=== PATIENT | female | born 1945 | race Caucasian/White ===

== ENCOUNTER → 2017-05-02 | Outpatient (CLI) | payer MEDICARE ==
--- NOTE | 2017-05-02 11:01 | BD ---
EXAMINATION TYPE: MG DEXA axial skeleton. DATE OF EXAM: 05/02/2017 COMPARISON: Previous study dated 09/03/2012 CLINICAL HISTORY: Postmenopausal female. . Height: 5 ft 5 1/4 in Weight: 184 FRAX RISK QUESTIONS: Alcohol (3 or more units per day): NO Family History (Parent hip fracture): NO Glucocorticoids (More than 3mos): NO (Ex: prednisone, prednisolone, methylprednisolone, dexamethasone, and hydrocortisone). History of Fracture in Adulthood: NO Secondary Osteoporosis: 1. Type 1 Diabetes: NO 2. Hyperthyroidism: NO 3. Menopause before 45: NO 4. Malnutrition: NO 5. Chronic liver disease: NO Rheumatoid Arthritis: NO Current Tobacco Use: NO RISK FACTORS HISTORY OF: Drink Alcohol: ONCE A WEEK Active: YES Postmenopausal woman: TOTAL HYST AGE 51 Take estrogen and/or progesterone medications: TOOK FROM AGE 51 -56 MEDICATIONS: Thyroid Medications: LEVOTHYROXINE How Long: OVER 20 YRS Osteoporosis Medications: Which medication: How Long: Additional Medications: LEVOTHYROXINE, HYDROCHLOROTHIAZIDE, ATTENOLOL EXAM MEASUREMENTS: Bone mineral densitometry was performed using the [employer]. Bone mineral density as measured about the Lumbar spine is: ----- L1-L4(G/cm2): 1.173 T Score Values are as follows: ----- L2: -1.5 ----- L3: 0.3 ----- L4: 0.8 ----- L1-L4: -0.1 Bone mineral density has: Increased 1.4% since study of: 2011 Bone mineral density about the R hip (g/cm2): 1.028 Bone mineral density about the L hip (g/cm2): 1.027 T Score values are as follows: -----R Neck: -0.1 -----L Neck: -0.1 -----R Total: 0.6 -----L Total: 0.4 Bone mineral density has: Decreased -5.0% since study of: 2011 IMPRESSION: Osteopenia (T Score between -2.5 and -1 as noted by T score values There is slightly increased risk of fracture and the patient may be considered for treatment. Re-Screen 1-3 years. This patient has lost an inch in height 2011. This increases her risk for osteoporotic fracture. NOTE: T-SCORE=SD OF THE YOUNG ADULT MEAN.
--- NOTE | 2017-05-05 08:53 | MM ---
Reason for exam: screening (asymptomatic). Last mammogram was performed 1 year and 8 months ago. History: Patient is postmenopausal and has history of other cancer at age 70. Took hormonal contraceptives for 7 years beginning at age 25. Took estrogen for 5 years beginning at age 51. Physical Findings: A clinical breast exam by your physician is recommended on an annual basis and results should be correlated with mammographic findings. MG 3D Screening Mammo W/Cad Bilateral CC and MLO view(s) were taken. Prior study comparison: September 13, 2015, bilateral MG screening mammo w CAD. September 12, 2014, bilateral MG screening mammo w CAD. There is chronic nodularity in the right breast. No significant changes when compared with prior studies. ASSESSMENT: Benign, BI-RAD 2 RECOMMENDATION: Routine screening mammogram of both breasts in 1 year.
== END | disposition home or self-care (01) ==
LOC: RADMAMWWP 09:38
PROVIDERS: ATTEND Family Medicine
DX: Z12.31 Encounter for screening mammogram for malignant neoplasm of breast (principal); M85.80 Other specified disorders of bone density and structure, unspecified site
CPT/HCPCS: 77080; 77063; G0202

== ENCOUNTER → 2018-05-26 | Outpatient (CLI) | payer MEDICARE ==
--- NOTE | 2018-05-28 10:40 | MM ---
Reason for exam: screening (asymptomatic). Last mammogram was performed 1 year and 1 month ago. History: Patient is postmenopausal and has history of other cancer at age 70. Took hormonal contraceptives for 7 years beginning at age 25. Took estrogen for 5 years beginning at age 51. Physical Findings: A clinical breast exam by your physician is recommended on an annual basis and results should be correlated with mammographic findings. MG 3D Screening Mammo W/Cad Bilateral CC and MLO view(s) were taken. Prior study comparison: May 02, 2017, bilateral MG 3d screening mammo w/cad. September 13, 2015, bilateral MG screening mammo w CAD. There are scattered fibroglandular densities. No suspicious abnormality. No significant changes when compared with prior studies. ASSESSMENT: Negative, BI-RAD 1 RECOMMENDATION: Routine screening mammogram of both breasts in 1 year.
== END | disposition home or self-care (01) ==
LOC: RADMAMWWP 09:01
PROVIDERS: ATTEND Family Medicine
DX: Z12.31 Encounter for screening mammogram for malignant neoplasm of breast (principal)
CPT/HCPCS: 77063; 77067

== ENCOUNTER 2018-09-03 08:00 | Day surgery (SDC) | payer MEDICARE ==
[2018-08-31 12:50] VITALS: BMI 29.4
[~2018-09-03 08:00] MED LIST: LACTATED RINGERS 1,000 ML IV SCH
[2018-09-03] MEDS ORDERED: LIDOCAINE 1% 20 ML VIAL (10MG/ML) FOR IV START INTRADERMA ONE (08:54)
[2018-09-03 09:05] VITALS: RESP 16; TEMP 97.8
[2018-09-03] MEDS ORDERED: PROPOFOL 10 MG/ML 20 ML VIAL IV ONE (09:22)
[2018-09-03] MEDS ORDERED: LIDOCAINE 1% INJ 10MG/ML (20 ML MDV) ONE (09:22)
[2018-09-03] MEDS ORDERED: MIDAZOLAM 2 MG/2 ML VIAL ONE (09:22)
--- NOTE | 2018-09-03 09:59 | P.PCN ---
Date of Procedure: 09/03/18 Procedure(s) Performed: Brief history: Patient is a pleasant 73-year-old white female, scheduled for an elective upper endoscopy as well as colonoscopy as a part of evaluation of GERD and prior history of colon polyps. Procedure performed: Esophagogastroduodenoscopy with biopsy Colonoscopy Preoperative diagnosis: Long-standing history of GERD History of colon polyps Anesthesia: MAC Procedure: After informed consent was obtained from the patient was brought into the endoscopy unit and IV sedation was administered by anesthesia under continuous monitoring. Initially upper endoscopy was done. The Olympus GF 160 video endoscope was inserted inserted into the mouth and esophagus intubated without any difficulty and was gradually advanced into the stomach and duodenum and carefully examined. The bulb and second part of the duodenum appeared normal. The scope was then withdrawn into the stomach adequately insufflated with air and upon careful examination the antrum and body, cardia and fundus appeared normal. The scope was then withdrawn into the esophagus. The GE junction was located at 40 cm to the incisors. It appeared regular with no erythema erosions or ulcerations. Rest of the esophagus appeared normal. Patient tolerated the procedure well. At this time the patient continued to remain sedation. Initial digital rectal examination was normal. Olympus CF 160 video colonoscope was then inserted into the rectum and gradually advanced to the cecum without any difficulty. Careful examination was performed as the scope was gradually being withdrawn. The prep was excellent. The cecum, ascending colon, transverse colon, descending colon, sigmoid colon and rectum appeared normal. Diffuse scattered diverticulosis seen. Retroflexion was performed in the rectum and no lesions were noted. Patient tolerated the procedure well. Impression: 1. Upper endoscopy revealed mild antral gastritis, LA grade B reflux esophagitis and small hiatal hernia 2. Colonoscopy revealed diffuse scattered diverticulosis but no evidence of colorectal neoplasia Recommendations: Findings of this examination were discussed with the patient as well as his family. She was advised to follow with biopsy results. She was advised to stop Zantac and instead advised to start on Prilosec 20 mg daily and follow antireflux measures. She can have a repeat surveillance colonoscopy in 5 years from now because of prior history of colon polyps
[2018-09-03 10:05] VITALS: BP 145/88
[2018-09-03 10:16] VITALS: PULSE 64
== END 2018-09-03 10:40 | disposition home or self-care (01) ==
LOC: ORWHC2ENDO 08:00
PROVIDERS: ATTEND Internal Medicine Gastroenterology
DX: K29.50 Unspecified chronic gastritis without bleeding (principal); K21.0 Gastro-esophageal reflux disease with esophagitis; K44.9 Diaphragmatic hernia without obstruction or gangrene; K57.30 Diverticulosis of large intestine without perforation or abscess without bleeding; Z86.010 Personal history of colon polyps; E07.9 Disorder of thyroid, unspecified; I10 Essential (primary) hypertension; Z79.899 Other long term (current) drug therapy
CPT/HCPCS: 88305; 45378; 43239; J2250; J2001; J2704

== ENCOUNTER → 2019-05-21 | Outpatient (CLI) | payer MEDICARE ==
[2019-05-21 13:48] LABS: African American GFR (CKD) >90 (>60 ml/min/1.73 sqM); Blood Urea Nitrogen 15 mg/dL (7-17)
--- NOTE | 2019-05-21 15:43 | CT ---
EXAMINATION TYPE: CT abdomen pelvis w con DATE OF EXAM: 05/21/2019 COMPARISON: None HISTORY: Epigastric pain. CT DLP: 942.8 mGycm CONTRAST: CT scan of the abdomen and pelvis is performed with Oral Contrast and with IV Contrast, patient injec fannie with 100ml mL of Isovue 300. FINDINGS: LUNG BASES-: No visible nodule. No infiltrate. Fixed hiatal hernia noted. LIVER/GB: No calcified gallstones. There is hepatic steatosis with hepatomegaly. No space occupying hepatic lesion. Biliary tree is of normal caliber. PANCREAS: No inflammation. No distinct mass. SPLEEN: No splenic enlargement. No lesion seen. ADRENALS: No nodule. No thickening. KIDNEYS/BLADDER: No hydronephrosis. No nephrolithiasis. No distinct solid renal mass. Simple cyst lower pole right kidney measuring 8.3 cm. Urinary bladder grossly unremarkable. BOWEL: Normal appendix. Normal bowel caliber. No inflammation. GENITAL ORGANS: No gross abnormality. LYMPH NODES: No greater than 1cm abdominal or pelvic lymph nodes are appreciated. AORTA: No significant abnormality. OSSEOUS STRUCTURES: No significant abnormality is seen. OTHER: No significant additional abnormality is seen. IMPRESSION: 1. Hepatic steatosis with hepatomegaly. 2. Fixed hiatal hernia. 3. Large simple cyst lower pole right kidney.
== END | disposition home or self-care (01) ==
LOC: RADCTMAIN 13:04
PROVIDERS: ATTEND Internal Medicine Gastroenterology
DX: K44.9 Diaphragmatic hernia without obstruction or gangrene (principal); K76.0 Fatty (change of) liver, not elsewhere classified; N28.1 Cyst of kidney, acquired; Z01.89 Encounter for other specified special examinations
CPT/HCPCS: 82565; 84520; 74177; 36415; Q9967

== ENCOUNTER → 2019-07-13 | Outpatient (CLI) | payer MEDICARE ==
--- NOTE | 2019-07-14 10:06 | MM ---
Reason for exam: screening (asymptomatic). Last mammogram was performed 1 year and 2 months ago. History: Patient is postmenopausal and has history of other cancer at age 70. Took hormonal contraceptives for 7 years beginning at age 25. Took estrogen for 5 years beginning at age 51. Physical Findings: A clinical breast exam by your physician is recommended on an annual basis and results should be correlated with mammographic findings. MG 3D Screening Mammo W/Cad Bilateral CC and MLO view(s) were taken. Prior study comparison: May 26, 2018, bilateral MG 3d screening mammo w/cad. May 02, 2017, bilateral MG 3d screening mammo w/cad. There are scattered fibroglandular densities. There is no discrete abnormality. No significant changes when compared with prior studies. ASSESSMENT: Negative, BI-RAD 1 RECOMMENDATION: Routine screening mammogram of both breasts in 1 year.
== END | disposition home or self-care (01) ==
LOC: RADMAMWWP 10:18
PROVIDERS: ATTEND Family Medicine
DX: Z12.31 Encounter for screening mammogram for malignant neoplasm of breast (principal)
CPT/HCPCS: 77063; 77067

== ENCOUNTER 2020-07-08 15:01 | Emergency (ER) | payer MEDICARE ==
[2020-07-08 15:06] VITALS: BP 188/94; PULSE 85; RESP 18; TEMP 98.1
[2020-07-08 16:06] LABS: Basophils # (A) 0.1 k/uL (0-0.2); Basophils % (A) 1 %; Eosinophils # (A) 0.1 k/uL (0-0.7); Eosinophils % (A) 2 %; HCT 47.1 % (34.0-46.0); HGB 15.5 gm/dL (11.4-16.0); Lymphocytes % (A) 15 %; MCH 31.9 pg (25.0-35.0); MCHC 32.9 g/dL (31.0-37.0); Mean Platelet Volume 7.4; Monocytes # (A) 0.4 k/uL (0-1.0); Monocytes % (A) 6 %; Neutrophils # (A) 4.8 k/uL (1.3-7.7); Neutrophils % (A) 75 %; Platelet Count 246 k/uL (150-450); RBC 4.86 m/uL (3.80-5.40); RDW 12.6 % (11.5-15.5); WBC 6.4 k/uL (3.8-10.6)
[2020-07-08 16:15] LABS: ALT 31 U/L (4-34); AST 32 U/L (14-36); African American GFR (CKD) >90 (>60 ml/min/1.73 sqM); Albumin 4.8 g/dL (3.5-5.0); Alkaline Phosphatase 81 U/L (38-126); Anion Gap 9 mmol/L; Blood Urea Nitrogen 13 mg/dL (7-17); Calcium 11.3 mg/dL (8.4-10.2); Carbon Dioxide 26 mmol/L (22-30); Chloride 103 mmol/L (98-107); Glucose 120 mg/dL (74-99); INR 0.9 (<1.2); Non-African American GFR(CKD) 89 (>60 ml/min/1.73 sqM); Partial Thromboplastin Time 22.3 sec (22.0-30.0); Potassium 3.9 mmol/L (3.5-5.1); Prothrombin Time 9.8 sec (9.0-12.0); Sodium 138 mmol/L (137-145); Total Bilirubin 0.5 mg/dL (0.2-1.3); Total Protein 7.6 g/dL (6.3-8.2)
--- NOTE | 2020-07-08 16:36 | ED ---
General Adult HPI - General Chief complaint: Neuro Symptoms/Deficit Stated complaint: Neuro Symptoms Time Seen by Provider: 07/08/20 15:05 Source: patient Mode of arrival: wheelchair Limitations: no limitations - History of Present Illness Initial comments: Patient is 75-year-old female with past medical history of hypertension and thyroid disorder who presents to the emergency department with reported right- sided facial droop. Noted that on her right eye became very watery with blurred vision. She noted that she couldn't close it. Yesterday she noted that she had tingling to her nose and drooping to her right mouth. She's been trying to use eyedrops in the right eye. Denies any speech difficulties. No headaches or visual changes. Denies any neck stiffness. No recent head trauma. Denies history of CVA or TIA. No weakness in her upper or lower extremities. denies any confusion. She called her primary care physician who was concerned for Riggs's palsy but told her to go into the emergency room and 4 evaluation of possible stroke. Patient denies any ear pain or hearing changes. No fevers or chills. Denies chest pain or shortness of breath. No abdominal pain. No other alleviating, precipitating or modifying factors - Related Data Home Medications Medication Instructions Recorded Confirmed Cholecalciferol (Vitamin D3) 2,000 unit PO MOTUWETHFR 08/31/18 09/03/18 [Vitamin D3] Levothyroxine Sodium [Synthroid] 150 mcg PO DAILY 08/31/18 09/03/18 Ranitidine HCl [Zantac] 150 mg PO DAILY 08/31/18 09/03/18 atenoloL [Atenolol] 25 mg PO DAILY 08/31/18 09/03/18 hydroCHLOROthiazide 25 mg PO DAILY 08/31/18 09/03/18 Previous Rx's Medication Instructions Recorded Artificial Tears Ointment 1 gm OPHTHALMIC HS #1 tube 07/08/20 [Lubrifresh Pm Ointment] Carboxymethylcellulose Sodium 2 drop RIGHT EYE QID #1 bottle 07/08/20 [Refresh Tears] predniSONE [Deltasone] 60 mg PO DAILY #7 tab 07/08/20 valACYclovir HCL [Valtrex] 1,000 mg PO Q8HR #21 tab 07/08/20 Allergies Allergy/AdvReac Type Severity Reaction Status Date / Time No Known Allergies Allergy Verified 07/08/20 15:06 Review of Systems ROS Statement: Those systems with pertinent positive or pertinent negative responses have been documented in the HPI. ROS Other: All systems not noted in ROS Statement are negative. 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 History of Any Multi-Drug Resistant Organisms: None Reported Past Surgical History: Appendectomy, Hysterectomy Additional Past Surgical History / Comment(s): Colonoscopy, Carpal Tunnel, Cataracts Past Anesthesia/Blood Transfusion Reactions: Previous Problems w/ Anesthesia Additional Past Anesthesia/Blood Transfusion Reaction / Comment(s): last colonoscopy, O2 sats dropped and pt needed to be intubated Past Psychological History: No Psychological Hx Reported Smoking Status: Never smoker Past Alcohol Use History: Rare Past Drug Use History: None Reported - Past Family History Mother Family Medical History: No Reported History General Exam Limitations: no limitations Course Vital Signs 07/08/20 15:03 Temperature 98.1 F Pulse Rate 85 Respiratory 18 Rate Blood Pressure 188/94 O2 Sat by Pulse 98 Oximetry Medical Decision Making - Medical Decision Making Upon arrival the patient is placed into room 1. A thorough history and physical exam is performed. Onset of symptoms has been since and has been worsening in nature. No sudden onset of symptoms. Patient is unable to wrinkle her forehead. Patient cannot close her eye. There is injection to the right eye. I am concerned for Riggs's palsy however I do believe the patient should still have evaluation for possible CVA. Patient agreed to this. Laboratory states her conducted. Calcium is 11.3. Patient went over for a CT of her brain as well as CT angiography and a chest x-ray. Imaging demonstrates no acute findings. The results are discussed the patient. I did discuss diagnosis, differential and treatment options. At this time I do believe the patient's symptoms are most consistent with Riggs's palsy. At this time she will be given 60 mg of prednisone and 1 g of valacyclovir. She will be placed on these medications for the next 7 days. She is instructed to keep the eye covered with eyepatch for which she is provided with 1. During the day she is to use lubricating eyedrops 4 times a day to the right eye. At nighttime I would like the patient to use lubricating ointment and tape her eye closed. The patient is given medical tape. Prescriptions were sent to the pharmacy. She is instruct ed to start taking the prednisone and valacyclovir tomorrow she did receive her dose already for today. She needs to follow up with her primary care physician early next week. I also given follow-up information for the captain waiter/waitress on- call. The patient has any new or worsening symptoms she should return to the emergency room. Patient was in agreement with the treatment plan and she was discharged home in stable condition - Lab Data Result diagrams: 07/08/20 15:54 07/08/20 15:54 Lab Results 07/08/20 07/08/20 07/08/20 Range/Units 15:54 15:54 15:54 WBC 6.4 (3.8-10.6) k/uL RBC 4.86 (3.80-5.40) m/uL Hgb 15.5 (11.4-16.0) gm/dL Hct 47.1 H (34.0-46.0) % MCV 97.0 (80.0-100.0) fL MCH 31.9 (25.0-35.0) pg MCHC 32.9 (31.0-37.0) g/dL RDW 12.6 (11.5-15.5) % Plt Count 246 (150-450) k/uL Neutrophils % 75 % Lymphocytes % 15 % Monocytes % 6 % Eosinophils % 2 % Basophils % 1 % Neutrophils # 4.8 (1.3-7.7) k/uL Lymphocytes # 1.0 (1.0-4.8) k/uL Monocytes # 0.4 (0-1.0) k/uL Eosinophils # 0.1 (0-0.7) k/uL Basophils # 0.1 (0-0.2) k/uL PT 9.8 (9.0-12.0) sec INR 0.9 (<1.2) APTT 22.3 (22.0-30.0) sec Sodium 138 (137-145) mmol/L Potassium 3.9 (3.5-5.1) mmol/L Chloride 103 (98-107) mmol/L Carbon Dioxide 26 (22-30) mmol/L Anion Gap 9 mmol/L BUN 13 (7-17) mg/dL Creatinine 0.63 (0.52-1.04) mg/dL Est GFR (CKD-EPI)AfAm >90 (>60 ml/min/1.73 sqM) Est GFR (CKD-EPI)NonAf 89 (>60 ml/min/1.73 sqM) Glucose 120 H (74-99) mg/dL Calcium 11.3 H (8.4-10.2) mg/dL Total Bilirubin 0.5 (0.2-1.3) mg/dL AST 32 (14-36) U/L ALT 31 (4-34) U/L Alkaline Phosphatase 81 (38-126) U/L Troponin I (0.000-0.034) ng/mL Total Protein 7.6 (6.3-8.2) g/dL Albumin 4.8 (3.5-5.0) g/dL 07/08/20 Range/Units 15:54 WBC (3.8-10.6) k/uL RBC (3.80-5.40) m/uL Hgb (11.4-16.0) gm/dL Hct (34.0-46.0) % MCV (80.0-100.0) fL MCH (25.0-35.0) pg MCHC (31.0-37.0) g/dL RDW (11.5-15.5) % Plt Count (150-450) k/uL Neutrophils % % Lymphocytes % % Monocytes % % Eosinophils % % Basophils % % Neutrophils # (1.3-7.7) k/uL Lymphocytes # (1.0-4.8) k/uL Monocytes # (0-1.0) k/uL Eosinophils # (0-0.7) k/uL Basophils # (0-0.2) k/uL PT (9.0-12.0) sec INR (<1.2) APTT (22.0-30.0) sec Sodium (137-145) mmol/L Potassium (3.5-5.1) mmol/L Chloride (98-107) mmol/L Carbon Dioxide (22-30) mmol/L Anion Gap mmol/L BUN (7-17) mg/dL Creatinine (0.52-1.04) mg/dL Est GFR (CKD-EPI)AfAm (>60 ml/min/1.73 sqM) Est GFR (CKD-EPI)NonAf (>60 ml/min/1.73 sqM) Glucose (74-99) mg/dL Calcium (8.4-10.2) mg/dL Total Bilirubin (0.2-1.3) mg/dL AST (14-36) U/L ALT (4-34) U/L Alkaline Phosphatase (38-126) U/L Troponin I <0.012 (0.000-0.034) ng/mL Total Protein (6.3-8.2) g/dL Albumin (3.5-5.0) g/dL Disposition Clinical Impression: Riggs's palsy Disposition: HOME SELF-CARE Condition: Stable Additional Instructions: Please follow-up with the primary care doctor in 2-4 days. Use the eye ointment and tape your eye closed at night. During the day use the eyedrops and keep the eye covered. Follow-up with the eye doctor next week. Return to the emergency department for any new or worsening symptoms Prescriptions: predniSONE [Deltasone] 60 mg PO DAILY #7 tab Artificial Tears Ointment [Lubrifresh Pm Ointment] 1 gm OPHTHALMIC HS #1 tube Carboxymethylcellulose Sodium [Refresh Tears] 2 drop RIGHT EYE QID #1 bottle valACYclovir HCL [Valtrex] 1,000 mg PO Q8HR #21 tab Is patient prescribed a controlled substance at d/c from ED?: No Referrals: Virgen Salazar MD [Primary Care Provider] - 1-2 days Marquez Vogt MD [STAFF PHYSICIAN] - 1-2 days Time of Disposition: 17:52
--- NOTE | 2020-07-08 16:39 | CT ---
EXAMINATION TYPE: CT brain wo con DATE OF EXAM: 07/08/2020 COMPARISON: None HISTORY: Right side weakness CT DLP: 1102.8 mGycm Automated exposure control for dose reduction was used. There is mild cerebral atrophy appropriate for age. There is no mass effect nor midline shift. There is no sign of intracranial hemorrhage. The calvarium is intact. Skull base is intact. There is normal aeration of the mastoid sinuses. IMPRESSION: Negative CT scan of the brain.
--- NOTE | 2020-07-08 17:00 | CT ---
EXAMINATION TYPE: CT angio head neck DATE OF EXAM: 07/08/2020 COMPARISON: None HISTORY: Right side weakness CT DLP: 436.2 mGycm Automated exposure control for dose reduction was used. CONTRAST: Performed with IV Contrast, patient injected with 65 mL of Isovue 370. Images were obtained from the aortic arch to the vertex of the brain with IV contrast. There are 3-D post processed images. There is normal branching pattern of the great vessels on the aortic arch. There is bilateral arteria l flow in the subclavian arteries. There is arterial flow in the common internal and external carotid arteries bilaterally. There is wide patency of the carotid artery bifurcations. There is arterial fl ow in both vertebral arteries which are symmetric. There is no evidence of carotid or vertebral arter y aneurysm or dissection. There is arterial flow in the anterior middle and posterior cerebral arteries. There is arterial flow in the vertebrobasilar artery system. There is no mass effect. There is no evidence of intracranial aneurysm or neovascularity. I see no evidence of arterial stenosis in the brain. There is normal cont rast opacification of the venous sinuses. IMPRESSION: Normal CT angiogram of the neck. Normal CT angiogram of the brain.
--- NOTE | 2020-07-08 17:16 | XR ---
EXAMINATION TYPE: XR chest 2V DATE OF EXAM: 07/08/2020 COMPARISON: NONE HISTORY: Altered mental status. TECHNIQUE: FINDINGS: Heart and mediastinum are normal. Lungs are clear. Diaphragm is normal. Bony thorax appears normal. There are no hilar masses. IMPRESSION: Normal chest.
[2020-07-08] MEDS ORDERED: valACYclovir 500 MG TAB PO STA (17:36)
[2020-07-08] MEDS ORDERED: predniSONE 20 MG TAB PO STA (17:36)
== END 2020-07-08 18:30 | disposition home or self-care (01) ==
LOC: EC 15:01
DX: G51.0 Bell's palsy (principal); I10 Essential (primary) hypertension; E07.9 Disorder of thyroid, unspecified; Z79.890 Hormone replacement therapy; Z79.899 Other long term (current) drug therapy; Z85.828 Personal history of other malignant neoplasm of skin
CPT/HCPCS: 36415; 80053; 84484; 85025; 85610; 85730; 71046; 70496; 70450; 70498; 99284; J7512; Q9967

== ENCOUNTER → 2020-07-17 | Outpatient (CLI) | payer MEDICARE ==
--- NOTE | 2020-07-18 11:28 | MM ---
Reason for exam: screening (asymptomatic). Last mammogram was performed 1 year ago. History: Patient is postmenopausal and has history of other cancer at age 70. Took hormonal contraceptives for 7 years beginning at age 25. Took estrogen for 5 years beginning at age 51. Physical Findings: A clinical breast exam by your physician is recommended on an annual basis and results should be correlated with mammographic findings. MG 3D Screening Mammo W/Cad Bilateral CC and MLO view(s) were taken. Prior study comparison: July 13, 2019, bilateral MG 3d screening mammo w/cad. May 26, 2018, bilateral MG 3d screening mammo w/cad. There are scattered fibroglandular densities. There are benign appearing round calcifications in the left breast posterior middle position. Asymmetric breast tissue right anterior, stable. There is no discrete abnormality. ASSESSMENT: Benign, BI-RAD 2 RECOMMENDATION: Routine screening mammogram of both breasts in 1 year.
== END | disposition home or self-care (01) ==
LOC: RADMAMWWP 16:14
PROVIDERS: ATTEND Family Medicine
DX: Z12.31 Encounter for screening mammogram for malignant neoplasm of breast (principal)
CPT/HCPCS: 77063; 77067

== ENCOUNTER → 2020-08-14 | Outpatient (CLI) | payer MEDICARE ==
--- NOTE | 2020-08-14 18:15 | BD ---
EXAMINATION TYPE: Axial Bone Density DATE OF EXAM: 08/14/2020 COMPARISON: NONE CLINICAL HISTORY: Postmenopausal screening Height: 66 Weight: 183.2 FRAX RISK QUESTIONS: Alcohol (3 or more units per day): no Family History (Parent hip fracture): no Glucocorticoids (More than 3mos): no (Ex: prednisone, prednisolone, methylprednisolone, dexamethasone, and hydrocortisone). History of Fracture in Adulthood: no Secondary Osteoporosis: 1. Type 1 Diabetes: no 2. Hyperthyroidism: no 3. Menopause before 45: no 4. Malnutrition: no 5. Chronic liver disease: no Rheumatoid Arthritis: no Current Tobacco Use: no RISK FACTORS HISTORY OF: Family History of Osteoporosis: no Active: yes Diet low in dairy products/other sources of calcium: no Postmenopausal woman: age 51 Lost more than 2 inches in height since high school: no MEDICATIONS: blood pressure meds, Prilosec, vitamins Thyroid Medications: thyroid How Lon years Additional History: EXAM MEASUREMENTS: Bone mineral densitometry was performed using the [employer] System. Bone mineral density as measured about the Lumbar spine is: ----- L1-L4(G/cm2): 1.159 T Score Values are as follows: ----- L2: -1.8 ----- L3: 0.3 ----- L4: 0.7 ----- L1-L4: -0.2 Bone mineral density has: decreased -1.0 % since study of: 05.12.2017 Bone mineral density about the R hip (g/cm2): 1.000 Bone mineral density about the L hip (g/cm2): 0.951 T Score values are as follows: -----R Neck: -0.3 -----L Neck: -0.6 -----R Total: 0.4 -----L Total: 0.0 Bone mineral density has: decreased -3.6 % since study of: 05.12.2017 IMPRESSION: Normal (Values between +1 and -1 indicate normal bone mass). Consider repeating this study in 5 year s or sooner if there is some new clinical indication. NOTE: T-SCORE=SD OF THE YOUNG ADULT MEAN. .
== END | disposition home or self-care (01) ==
LOC: RADBDWWP 07:21
PROVIDERS: ATTEND Family Medicine
DX: Z78.0 Asymptomatic menopausal state (principal)
CPT/HCPCS: 77080

== ENCOUNTER → 2021-08-08 | Outpatient (CLI) | payer MEDICARE ==
--- NOTE | 2021-08-08 14:19 | MM ---
Reason for exam: screening (asymptomatic). Last mammogram was performed 1 year and 1 month ago. History: Patient is postmenopausal and has history of other cancer at age 70. Took hormonal contraceptives for 7 years beginning at age 25. Took estrogen for 5 years beginning at age 51. Physical Findings: A clinical breast exam by your physician is recommended on an annual basis and results should be correlated with mammographic findings. MG 3D Screening Mammo W/Cad Bilateral CC and MLO view(s) were taken. Prior study comparison: July 17, 2020, bilateral MG 3d screening mammo w/cad. July 13, 2019, bilateral MG 3d screening mammo w/cad. May 26, 2018, bilateral MG 3d screening mammo w/cad. There are scattered fibroglandular densities. There are benign appearing round calcifications in the left breast. There is chronic nodularity in the right breast, stable. There is no discrete abnormality. ASSESSMENT: Benign, BI-RAD 2 RECOMMENDATION: Routine screening mammogram of both breasts in 1 year.
== END | disposition home or self-care (01) ==
LOC: RADMAMWWP 09:03
PROVIDERS: ATTEND Family Medicine
DX: Z12.31 Encounter for screening mammogram for malignant neoplasm of breast (principal)
CPT/HCPCS: 77063; 77067

== ENCOUNTER 2021-09-14 10:35 | Day surgery (SDC) | payer MEDICARE ==
[2021-09-12 11:25] VITALS: BMI 28.3
[2021-09-14 11:04] VITALS: TEMP 97.3
[2021-09-14] MEDS ORDERED: PROPOFOL 10 MG/ML 20 ML VIAL IV ONE (12:28)
--- NOTE | 2021-09-14 12:53 | P.PCN ---
Date of Procedure: 09/14/21 Procedure(s) Performed: BRIEF HISTORY: Patient is a 76-year-old pleasant white female scheduled for an elective colonoscopy as a part of evaluation of intermittent rectal bleeding. PROCEDURE PERFORMED: Colonoscopy with biopsy. PREOPERATIVE DIAGNOSIS: Intermittent rectal bleeding. IV sedation per Anesthesia. PROCEDURE: After informed consent was obtained, the patient, was brought into the endoscopy unit. IV sedation was administered by Anesthesia under continuous monitoring. Digital rectal examination was normal. Initially the Olympus CF-160 flexible video colonoscope was then inserted in the rectum, gradually advanced into the cecum without any difficulty. Careful examination was performed as the scope was gradually being withdrawn. Ileocecal valve and the appendiceal orifice were visualized and appeared normal. Prep was excellent. Mucosa of the cecum, ascending colon, transverse colon, a normal. In the transverse colon there was a 3-4 mm polyp that was removed by cold biopsy. Rest of the descending colon, sigmoid colon, and rectum appeared normal. Moderate left sided diverticulosis seen. Retroflexion was performed in the rectum and grade 2 internal hemorrhoids were seen. The patient tolerated the procedure well. IMPRESSION: Grade 2 internal hemorrhoids Moderate left and diverticulosis 3-4 mm transverse colon polyp status post cold biopsy RECOMMENDATIONS: Findings of this examination were discussed with the patient as well as her family.. He was advised to be a high-fiber diet and take fiber supplements a regular basis. She can have a repeat colonoscopy in 5 years from now based on the biopsy results.
[2021-09-14 13:19] VITALS: BP 177/76; PULSE 62; RESP 15
== END 2021-09-14 13:35 | disposition home or self-care (01) ==
LOC: ORWHC2ENDO 10:35
PROVIDERS: ATTEND Internal Medicine Gastroenterology
DX: K64.1 Second degree hemorrhoids (principal); D12.8 Benign neoplasm of rectum
CPT/HCPCS: 45380; 88305; J2704

== ENCOUNTER → 2022-08-09 | Outpatient (CLI) | payer MEDICARE ==
--- NOTE | 2022-08-12 17:11 | MM ---
Reason for Exam: Screening (asymptomatic). Last screening mammogram was performed 12 month(s) ago. Patient History: Menarche at age 14. First Full-Term at age 25. Left ovary removed at age 51. Right ovary removed at age 51. Hysterectomy at age 51. Postmenopausal. Other cancer, age 70. Estrogen for 5 years from age 51 until age 56. Hormonal Contraceptives for 7 years from age 25 until age 32. Risk Values: Vanesa 5 year model risk: 1.6%. NCI Lifetime model risk: 3.4%. Prior Study Comparison: 07/13/2019 Bilateral Screening Mammogram, [facility]. 07/17/2020 Bilateral Screening Mammogram, [facility]. 08/08/2021 Bilateral Screening Mammogram, [facility]. Tissue Density: There are scattered fibroglandular densities. Findings: Analyzed By CAD. No suspicious groups of microcalcifications, spiculated or lobular masses, architectural distortion or other secondary signs of malignancy are mammographically apparent. Overall Assessment: Negative, BI-RAD 1 Management: Screening Mammogram of both breasts in 1 year. A negative mammogram report should not preclude additional follow up of suspicious palpable abnormalities. Patient should continue monthly self breast exam. A clinical breast exam by your physician is recommended on an annual basis and results should be correlated with mammographic findings. Electronically signed and approved by: Stoney Sigala D.O. Radiologis
== END | disposition home or self-care (01) ==
LOC: RADMAMWWP 09:25
PROVIDERS: ATTEND Family Medicine
DX: Z12.31 Encounter for screening mammogram for malignant neoplasm of breast (principal)
CPT/HCPCS: 77063; 77067

== ENCOUNTER → 2023-05-01 | Outpatient (CLI) | payer MEDICARE ==
[2023-05-02 03:06] LABS: ALT 28 U/L (8-44); AST 33 U/L (13-35); Albumin 4.6 d/dL (3.8-4.9); Albumin/Globulin Ratio 1.77 Ratio (1.60-3.17); Alkaline Phosphatase 83 U/L (41-126); BUN/Creat Ratio 16.29 Ratio (12.00-20.00); Blood Urea Nitrogen 11.4 mg/dL (9.0-27.0); Calcium 11.6 mg/dL (8.7-10.3); Carbon Dioxide 30.2 mmol/L (21.6-31.8); Chloride 105 mmol/L (96-109); Globulin 2.6 d/dL (1.6-3.3); Glucose 95 mg/dL (70-110); Potassium 5.2 mmol/L (3.5-5.5); Sodium 143 mmol/L (135-145); Total Bilirubin 0.6 mg/dL (0.3-1.2); Total Protein 7.2 d/dL (6.2-8.2)
== END | disposition home or self-care (01) ==
LOC: LABWHC1 12:12
PROVIDERS: ATTEND Internal Medicine Endocrinology, Diabetes & Metabolism
DX: E83.52 Hypercalcemia (principal)
CPT/HCPCS: 36415; 80053; 82306

== ENCOUNTER → 2023-07-21 | Outpatient (CLI) | payer MEDICARE ==
--- NOTE | 2023-07-21 15:24 | NM ---
EXAMINATION TYPE: NM parathyroid w/spect DATE OF EXAM: 07/21/2023 COMPARISON: NONE CLINICAL INDICATION: Female, 78 years old with history of E2.0 E83.52; TECHNIQUE: Following administration of 24 mCi Tc99m Sestamibi. Anterior projection images of the neck and chest were obtained 10 minutes and 3 hours post injection. SPECT images of the neck and chest were obtaine d and reconstructed in three axes. FINDINGS: Thyroid tracer washout: Delayed images demonstrate near-complete tracer washout from the thyroid. Parathyroid uptake: On delayed images and SPECT imaging appears to be asymmetric retained uptake over lying the left thyroid bed. Normal uptake: There is physiological tracer uptake in the salivary glands, and thyroid gland. IMPRESSION: A faint uptake seen inferior to the left lobe thyroid on delayed imaging is also seen on immediate im aging and therefore is not likely a adrenal adenoma. This could be correlated with CT soft tissue of the neck as clinically warranted.
== END | disposition home or self-care (01) ==
LOC: RADNMMAIN 10:36
PROVIDERS: ATTEND Internal Medicine Endocrinology, Diabetes & Metabolism
DX: E20.0 Idiopathic hypoparathyroidism (principal); R94.6 Abnormal results of thyroid function studies
CPT/HCPCS: 78071; A9500

== ENCOUNTER → 2023-08-07 | Outpatient (CLI) | payer MEDICARE ==
[2023-08-07 15:21] LABS: ALT 20 U/L (8-44); AST 28 U/L (13-35); Albumin 4.4 d/dL (3.8-4.9); Albumin/Globulin Ratio 1.91 Ratio (1.60-3.17); Alkaline Phosphatase 80 U/L (41-126); Calcium 10.9 mg/dL (8.7-10.3); Carbon Dioxide 28.1 mmol/L (21.6-31.8); Chloride 105 mmol/L (96-109); Chol/HDL Ratio 2.37 Ratio; Globulin 2.3 d/dL (1.6-3.3); Glucose 107 mg/dL (70-110); LDL Cholesterol,Calculated 90.5 mg/dL (0.0-131.0); Potassium 4.4 mmol/L (3.5-5.5); Sodium 144 mmol/L (135-145); Total Bilirubin 0.7 mg/dL (0.3-1.2); Total Protein 6.7 d/dL (6.2-8.2); VLDL Calculation 8.96 mg/dL (5.00-40.00)
[2023-08-07 16:14] LABS: Basophils # (A) 0.03 X 10*3/uL (0.00-0.10); Basophils % (A) 0.8 %; Eosinophils # (A) 0.11 X 10*3/uL (0.04-0.35); Eosinophils % (A) 2.9 %; HCT 42.4 % (37.2-46.3); HGB 14.1 d/dL (12.0-15.0); Lymphocytes # (A) 0.93 X 10*3/uL (0.90-5.00); Lymphocytes % (A) 24.7 %; MCH 32.8 pg (27.0-32.0); MCHC 33.3 d/dL (32.0-37.0); MCV 98.6 FL (80.0-97.0); Mean Platelet Volume 10.1 FL (9.5-12.2); Monocytes % (A) 10.6 %; NRBC Per 100 WBC 0 X 10*3/uL (0.00-0.01); Neutrophils # (A) 2.28 X 10*3/uL (1.80-7.70); Neutrophils % (A) 60.7 %; Platelet Count 219 X 10*3/uL (140-440); RDW 12.6 % (11.5-14.5); WBC 3.76 X 10*3/uL (4.50-10.00)
== END | disposition home or self-care (01) ==
LOC: LABWHC1 08:23
PROVIDERS: ATTEND Internal Medicine Endocrinology, Diabetes & Metabolism
DX: Z00.00 Encounter for general adult medical examination without abnormal findings (principal); I10 Essential (primary) hypertension; E03.8 Other specified hypothyroidism; E21.0 Primary hyperparathyroidism; R73.01 Impaired fasting glucose
CPT/HCPCS: 36415; 80053; 80061; 82306; 83036; 83970; 84443; 85025

== ENCOUNTER 2023-08-08 10:12 | Emergency (ER) | payer MEDICARE ==
[2023-08-08] MEDS ORDERED: KETOROLAC 15 MG/ML 1 ML VIAL IM STA (10:28)
--- NOTE | 2023-08-08 10:31 | ED ---
General Adult HPI - General Source: patient Mode of arrival: ambulatory Limitations: no limitations <Emigdio Melvin - Last Filed: 08/08/23 12:11> <César Wright - Last Filed: 08/08/23 12:36> - General Chief complaint: Extremity Injury, Upper Stated complaint: Fall, left shoulder injury Time Seen by Provider: 08/08/23 10:17 - History of Present Illness Initial comments: 8-year-old female presenting to the ED with a chief complaint of shoulder pain. Patient states that she was on her morning walk this morning and notes while she was walking she felt her momentum increasing and states she couldn't slow down and notes that she fell forward landing primarily onto her left shoulder. Patient notes that she did scrape her chin on the sidewalk due to this however otherwise denies head injury. Denies LOC. No nausea or vomiting. Now notes pain in the left shoulder. Her at bedside, acting appropriately. Denies chest pain or shortness of breath or lightheadedness prior to the fall. No other complaints. (Emigdio Melvin) - Related Data Home Medications Medication Instructions Recorded Confirmed Levothyroxine Sodium [Synthroid] 150 mcg PO QAM 08/31/18 09/14/21 atenoloL 25 mg PO QAM 08/31/18 09/14/21 hydroCHLOROthiazide 25 mg PO QAM 08/31/18 09/14/21 Cholecalciferol (Vitamin D3) 125 mcg PO MOTUWETHFR 09/12/21 09/14/21 [Vitamin D3 (125 MCG = 5,000 IU)] Omeprazole 20 mg PO QAM 09/12/21 09/14/21 Allergies Allergy/AdvReac Type Severity Reaction Status Date / Time No Known Allergies Allergy Verified 08/08/23 10:16 Review of Systems ROS Other: All systems not noted in ROS Statement are negative. <Emigdio Melvin - Last Filed: 08/08/23 12:11> ROS Other: All systems not noted in ROS Statement are negative. <César Wright - Last Filed: 08/08/23 12:36> ROS Statement: Those systems with pertinent positive or pertinent negative responses have been documented in the HPI. Past Medical History Past Medical History: Cancer, GERD/Reflux, Hypertension, Thyroid Disorder Additional Past Medical History / Comment(s): Hx basal skin cancer on nose. History of Any Multi-Drug Resistant Organisms: None Reported Past Surgical History: Appendectomy, Hysterectomy Additional Past Surgical History / Comment(s): Colonoscopy, Carpal Tunnel, Cataracts. Past Anesthesia/Blood Transfusion Reactions: Previous Problems w/ Anesthesia Additional Past Anesthesia/Blood Transfusion Reaction / Comment(s): "During 2nd last colonoscopy, O2 sats dropped and pt needed to be intubated, ribs were bruised and sore for 2 weeks after and had to have Chest X-ray to check for Pneumonia." Past Psychological History: No Psychological Hx Reported Smoking Status: Never smoker Past Alcohol Use History: Rare Past Drug Use History: None Reported - Past Family History Mother Family Medical History: No Reported History <Emigdio Melvin - Last Filed: 08/08/23 12:11> General Exam Limitations: no limitations General appearance: alert, in no apparent distress Neck exam: Present: normal inspection, other (No midline cervical spinal tenderness to palpation.) Respiratory exam: Present: normal lung sounds bilaterally Cardiovascular Exam: Present: regular rate, normal rhythm GI/Abdominal exam: Present: soft Extremities exam: Present: other (Left arm in sling. Strength and sensation intact in bilateral upper extremities. Decreased range of motion secondary to the pain.) Neurological exam: Present: alert, oriented X3 Skin exam: Present: warm, dry <Maurizio Melvinua - Last Filed: 08/08/23 12:11> Course Vital Signs 08/08/23 08/08/23 08/08/23 10:13 11:48 11:50 Temperature 98 F Pulse Rate 70 64 69 Respiratory 20 16 17 Rate Blood Pressure 181/95 180/102 178/97 O2 Sat by Pulse 97 99 97 Oximetry 08/08/23 08/08/23 08/08/23 11:55 12:00 12:05 Temperature Pulse Rate 78 73 72 Respiratory 18 20 21 Rate Blood Pressure 156/90 160/93 162/90 O2 Sat by Pulse 96 100 98 Oximetry 08/08/23 08/08/23 12:10 12:15 Temperature Pulse Rate 73 68 Respiratory 18 17 Rate Blood Pressure 165/85 164/94 O2 Sat by Pulse 100 98 Oximetry Procedures - Orthopedic Joint Reduction Joint #1 Side: left Joint Reduction Location: shoulder Analgesia: procedural sedation Shoulder Technique Used (if applicable): traction/counter-traction, external rotation Post-Reduction Neuro Exam: intact Post-Reduction Vascular Exam: intact Post Reduction X-Ray Obtained: Yes Post Reduction X-Ray Results: reduced Splint Applied: Yes (Shoulder sling) Patient Tolerated Procedure: well, no complications <Emigdio Melvin - Last Filed: 08/08/23 12:11> - Procedural Sedation *Procedural Sedation Start Time: 11:48 *Procedural Sedation Stop Time: 12:10 *Indications: fracture/dislocation reduction *Previous Adverse Reaction to Anesthesia/Sedation?: No *ASA Class: II *Mallampati Airway Score: 2 Preparation: impregnator operator applied IV Propofol Dose (mgs): 200 Complications: none Patient Tolerated Procedure: well, no complications <César Wright - Last Filed: 08/08/23 12:36> Medical Decision Making <Emigdio Melvin - Last Filed: 08/08/23 12:11> - Medical Decision Making Was pt. sent in by a medical professional or institution (, PA, CHAIRMAN AND CEO, urgent care, hospital, or longterm...) When possible be specific @ -No Did you speak to anyone other than the patient for history (EMS, parent, family, police, friend...)? What history was obtained from this source @ -No Did you review nursing and triage notes (agree or disagree)? Why? @ -I reviewed and agree with nursing and triage notes Were old charts reviewed (outside hosp., previous admission, EMS record, old EKG, old radiological studies, urgent care reports/EKG's, longterm records)? Report findings @ -No old charts were reviewed Differential Diagnosis (chest pain, altered mental status, abdominal pain women, abdominal pain men, vaginal bleeding, weakness, fever, dyspnea, syncope, headache, dizziness, GI bleed, back pain, seizure, CVA, palpatations, mental health, musculoskeletal)? @ -Differential Musculoskeletal Muscular strain, contusion, ligament sprain, fracture, arthritis, septic arthritis, bursitis, cellulitis, muscle spasm, nerve compression, DVT, arterial occlusion, herpes zoster, electrolyte abnormality, tumor.... This is not meant to be in all inclusive list EKG interpreted by me (3pts min.). @ -None X-rays interpreted by me (1pt min.). @ -X-ray interpreted by me shows anterior shoulder dislocation. CT interpreted by me (1pt min.). @ -None done U/S interpreted by me (1pt. min.). @ -None done What testing was considered but not performed or refused? (CT, X-rays, U/S, labs)? Why? @ -None What meds were considered but not given or refused? Why? @ -None Did you discuss the management of the patient with other professionals (professionals i.e. Dr., PA, CHAIRMAN AND CEO, lab, RT, psych nurse, social work assistant, repair department manager, teacher, intelligence officer basic, shelter case manager)? Give summary @ -No Was smoking cessation discussed for >3mins.? @ -No Was critical care preformed (if so, how long)? @ -No Were there social determinants of health that impacted care today? How? (Homelessness, low income, unemployed, alcoholism, drug addiction, transportation, low edu. Level, literacy, decrease access to med. care, fpc, rehab)? @ -No Was there de-escalation of care discussed even if they declined (Discuss DNR or withdrawal of care, Hospice)? DNR status @ -No What co-morbidities impacted this encounter? (DM, HTN, Smoking, COPD, CAD, Cancer, CVA, ARF, Chemo, Hep., AIDS, mental health diagnosis, sleep apnea, morbid obesity)? @ -None Was patient admitted / discharged? Hospital course, mention meds given and route, prescriptions, significant lab abnormalities, going to OR and other p ertinent info. @ -Discharge X-rays interpreted by me shows anterior shoulder dislocation. Patient brought over to trauma 2. Patient had shoulder reduced by me. Please see procedure note for further details. Procedural sedation performed by Dr. César Wright. She tolerated this procedure well with no complications. X-ray shows successful reduction. Patient neurovascularly intact after reduction. Patient discharged home in stable condition. Undiagnosed new problem with uncertain prognosis? @ -No Drug Therapy requiring intensive monitoring for toxicity (Heparin, Nitro, Insulin, Cardizem)? @ -No Were any procedures done? @ -Yes, shoulder reduction Diagnosis/symptom? @ -s/p fall, L anterior shoulder dislocation Acute, or Chronic, or Acute on Chronic? @ -Acute Uncomplicated (without systemic symptoms) or Complicated (systemic symptoms)? @ -Uncomplicated Side effects of treatment? @ -No Exacerbation, Progression, or Severe Exacerbation? @ -No Poses a threat to life or bodily function? How? (Chest pain, [place], [place], pneumonia, PE, COPD, DKA, ARF, appy, cholecystitis, CVA, Diverticulitis, Homicidal, Suicidal, threat to staff... and all critical care pts) @ -No (Emigdio Melvin) Disposition Is patient prescribed a controlled substance at d/c from ED?: No <Emigdio Melvin - Last Filed: 08/08/23 12:11> <César Wright - Last Filed: 08/08/23 12:36> Clinical Impression: Fall, Anterior dislocation of left shoulder Disposition: HOME SELF-CARE Condition: Good Instructions (If sedation given, give patient instructions): Shoulder Dislocation (ED) Additional Instructions: Please return to the Emergency Department if symptoms worsen or any other concerns. Referrals: Virgen Salazar MD [Primary Care Provider] - 1-2 days
--- NOTE | 2023-08-08 10:56 | XR ---
EXAMINATION TYPE: XR shoulder complete 3 views LT, XR humerus 2 views LT DATE OF EXAM: 08/08/2023 Comparison: None Clinical History: 78-year-old female s/p fall left shoulder pain Findings: Shoulder: There is anterior subcoracoid glenohumeral joint dislocation. Mild degenerative change at the AC join t with joint space narrowing. Acute fracture seen. Humerus: No acute fracture seen of the more mid to distal humerus. Impression: 1. Shoulder: Anterior subcoracoid glenohumeral joint dislocation. 2. Left humerus: No additional acute osseous abnormality seen.
[2023-08-08] MEDS ORDERED: PROPOFOL 10 MG/ML 20 ML VIAL IV ONE ×5 (11:21→11:59)
[2023-08-08] MEDS ORDERED: IBUPROFEN 600 MG STARTER PACK 4 TAB BTL PO STA (12:12)
[2023-08-08] MEDS ORDERED: MORPHINE SULFATE 2 MG/ML SYRINGE IVP ONE (12:28)
--- NOTE | 2023-08-08 12:31 | XR ---
EXAMINATION TYPE: XR shoulder limited LT DATE OF EXAM: 08/08/2023 CLINICAL HISTORY: pain COMPARISON: NONE TECHNIQUE: Single postreduction view of the left shoulder FINDINGS: There is relocation of the glenohumeral joint space. No displaced fractures are seen. IMPRESSION: As above
[2023-08-08 15:26] VITALS: BP 158/97; PULSE 67; RESP 18; TEMP 97.7
== END 2023-08-08 13:19 | disposition home or self-care (01) ==
LOC: EC 10:12
DX: S43.005A Unspecified dislocation of left shoulder joint, initial encounter (principal); I10 Essential (primary) hypertension; K21.9 Gastro-esophageal reflux disease without esophagitis; E07.9 Disorder of thyroid, unspecified; Z79.890 Hormone replacement therapy; Z79.899 Other long term (current) drug therapy; W18.30XA Fall on same level, unspecified, initial encounter; Y92.480 Sidewalk as the place of occurrence of the external cause; Y93.01 Activity, walking, marching and hiking
CPT/HCPCS: 73030; 73020; 73060; 23650; 99152; 99284; 96374; 96372; J2270; J1885; J2704

== ENCOUNTER → 2023-08-29 | Outpatient (CLI) | payer MEDICARE ==
--- NOTE | 2023-08-29 08:42 | US ---
EXAMINATION TYPE: US thyroid st tissue head/neck DATE OF EXAM: 08/29/2023 COMPARISON: NM dated 07/21/2023 CLINICAL INDICATION: Female, 78 years old with history of E21.0 PRIMARY HYPERPARATHYROIDISM; GLAND SIZE: Right Lobe: 3.2 x 1.3 x 0.7 cm Overall Parenchyma: heterogenous Left Lobe: 3.3 x 1.1 x 1.0 cm Overall Parenchyma: heterogenous Isthmus Thickness: 0.2 cm NODULES RIGHT: # of nodules measured on right: 0 LEFT: # of nodules measured on left: 0 ISTHMUS: # of nodules measured in the isthmus: 0 Bilateral neck scanned, no evidence of lymphadenopathy. No parathyroid adenoma identified. IMPRESSION: Nonspecific heterogenous appearing thyroid. No nodules seen. 2017 ACR TI-RADS LEVEL: *Highest TI-RADS level nodule reported
== END | disposition home or self-care (01) ==
LOC: RADUSWWP 07:31
PROVIDERS: ATTEND Surgery
DX: E21.0 Primary hyperparathyroidism (principal)
CPT/HCPCS: 76536

== ENCOUNTER → 2023-09-02 | Outpatient (CLI) | payer MEDICARE ==
--- NOTE | 2023-09-02 16:07 | BD ---
EXAMINATION TYPE: Axial Bone Density DATE OF EXAM: 09/02/2023 CLINICAL HISTORY: 78 years old Female. ICD-10 CODE: Z78.0 POST MENOPAUSAL Height: 65 Weight: 166.0 FRAX RISK QUESTIONS: Alcohol (3 or more units per day): no Family History (Parent hip fracture): no Glucocorticoids (More than 3mos): no (Ex: prednisone, prednisolone, methylprednisolone, dexamethasone, and hydrocortisone). History of Fracture in Adulthood: no Secondary Osteoporosis: 1. Type 1 Diabetes: no 2. Hyperthyroidism: no 3. Menopause before 45: no 4. Malnutrition: no 5. Chronic liver disease: no Rheumatoid Arthritis: no Current Tobacco Use: no RISK FACTORS HISTORY OF: Surgery to Spine/Hip(right/left)/Wrist (right/left): no Family History of Osteoporosis: no Active: yes Diet low in dairy products/other sources of calcium: yes Postmenopausal woman: yes Lost more than 2 inches in height since high school: no MEDICATIONS: Thyroid Medications: thyroid How Lon years Additional History: EXAM MEASUREMENTS: Bone mineral densitometry was performed using the [facility] System. Bone mineral density as measured about the Lumbar spine is: ----- L1-L4(G/cm2): 1.101 T Score Values are as follows: ----- L1: -1.4 ----- L2: -1.5 ----- L3: -0.3 ----- L4: -0.1 ----- L1-L4: -0.7 Z Score Values are as follows: ----- L1: 0.1 ----- L2: -0.1 ----- L3: 1.1 ----- L4: 1.4 ----- L1-L4: 0.8 Bone mineral density has: decreased -5.0 % since study of: 08.14.2020 Bone mineral density about the R hip (g/cm2): 0.998 Bone mineral density about the L hip (g/cm2): 0.955 T Score values are as follows: -----R Neck: -0.9 -----L Neck: -0.7 -----R Total: -0.1 -----L Total: -0.4 Z Score values are as follows: -----R Neck: 0.9 -----L Neck: 1.0 -----R Total: 1.5 -----L Total: 1.1 Bone mineral density has: decreased -5.3 % since study of: 08.14.2020 FRAX%s: The graph provided illustrates a 10.0% chance for a major osteoporotic fx and a 1.5% chance f or the hips probability for fx in 10 years time. IMPRESSION: Normal (Values between +1 and -1 indicate normal bone mass). Consider repeating this study in 5 year s or sooner if there is some new clinical indication. NOTE: T-SCORE=SD OF THE YOUNG ADULT MEAN.
== END | disposition home or self-care (01) ==
LOC: RADBDWWP 14:42
PROVIDERS: ATTEND Family Medicine
DX: M85.88 Other specified disorders of bone density and structure, other site (principal); Z78.0 Asymptomatic menopausal state
CPT/HCPCS: 77080

== ENCOUNTER → 2024-08-03 | Outpatient (CLI) | payer MEDICARE ==
--- NOTE | 2024-08-03 13:49 | MM ---
Reason for Exam: Screening (asymptomatic). Last mammogram was performed 2 year(s) and 0 month(s) ago. Patient History: Menarche at age 14. First Full-Term at age 25. Left ovary removed at age 51. Right ovary removed at age 51. Hysterectomy at age 51. Postmenopausal. Other cancer, age 70. Estrogen for 5 years from age 51 until age 56. Hormonal Contraceptives for 7 years from age 25 until age 32. Risk Values: Vanesa 5 year model risk: 1.6%. NCI Lifetime model risk: 3.0%. Prior Study Comparison: 07/17/2020 Bilateral Screening Mammogram, [facility]. 08/08/2021 Bilateral Screening Mammogram, [facility]. 08/09/2022 Bilateral MG 3D screening mammo w/cad, [facility]. Tissue Density: There are scattered areas of fibroglandular density. Findings: Analyzed By CAD. There is no suspicious group of microcalcifications or new suspicious mass in either breast. Overall Assessment: Negative, BI-RAD 1 Management: Screening Mammogram of both breasts in 1 year. . Patient should continue monthly self-breast exams. A clinical breast exam by your physician is recommended on an annual basis. This exam should not preclude additional follow-up of suspicious palpable abnormalities. Note on Vanesa scores and lifetime risk: 1. A Vanesa score greater than 3% is considered moderate risk. If this is the case, consider specialist referral to assess eligibility for a risk reducing agent. 2. If overall lifetime risk for the development of breast cancer is 20% or higher, the patient may qualify for future screening with alternating mammogram and breast MRI. Electronically signed and approved by: Jose Manuel Florez M.D. Radiologis
== END | disposition home or self-care (01) ==
LOC: RADMAMWWP 11:10
PROVIDERS: ATTEND Family Medicine
DX: Z12.31 Encounter for screening mammogram for malignant neoplasm of breast
CPT/HCPCS: 77063; 77067